=== PATIENT | female | born 1935 | race Caucasian/White ===

== ENCOUNTER 2016-10-27 13:38 | Inpatient (IN) | payer MEDICARE ==
[~2016-10-27] VITALS: Ht 162.6 cm; Wt 80.4 kg
[2016-10-27 14:13] VITALS: BP 152/64; PULSE 71; RESP 16; TEMP 97.8; O2SAT 97
--- NOTE | 2016-10-27 14:13 | PD ---
HPI Chief Complaint: General Weakness Time Seen by Provider: 14:13 Travel History International Travel<30 days: No Contact w/Intl Traveler<30days: No Traveled to known affect area: No History of Present Illness HPI 81-year-old female with a history of hyperlipidemia, hypothyroidism, anxiety and depression is brought to the emergency department by EMS for evaluation of generalized weakness. The patient is here visiting from [place] for the past several days. Per EMS report while the patient was out by the pool in the hot sun she began to feel weak and the family called EMS. The patient states that she has weakness in her legs that has been worsening over the past several months and she does use a wheelchair for ambulation. She also admits that she' s had frequent falls over the past several months due to the weakness in her legs. States that about 3 hours ago while sitting outside she did begin to feel weak all over. Denies any chest pain, shortness of breath, lightheadedness , dizziness, nausea, vomiting, abdominal pain, numbness or tingling, one-sided weakness, vision changes, headache, fever, chills, cough or cold symptoms. No other complaints. [facility] Past Medical History Narrative Medical Hyperlipidemia Hypothyroidism Memory loss ?: Not Social History Alcohol Use: No Tobacco Use: No Substance Use: No Allergies-Medications (Allergen,Severity, Reaction): Coded Allergies: Bactrim (Verified Allergy, Unknown, 10/27/16) Cipro (Verified Allergy, Unknown, 10/27/16) Codeine (Verified Allergy, Unknown, 10/27/16) Phenobarbital (Verified Allergy, Unknown, 10/27/16) Review of Systems Except as stated in HPI: all other systems reviewed are Neg Physical Exam Narrative GENERAL: Well-nourished and well-developed elderly female patient in no acute distress. SKIN: Warm and clammy. HEAD: Normocephalic and atraumatic. EYES: No injection, drainage, or hyphema noted. PERRLA. EOMI. ENT: No nasal drainage noted. Oropharynx is clear. NECK: Supple and the trachea is midline. CARDIOVASCULAR: Regular rate and rhythm. RESPIRATORY: Breath sounds are equal bilaterally with no accessory muscle use, wheezing, rhonchi, or crackles. GASTROINTESTINAL: Abdomen is soft, non-tender, and nondistended. MUSCULOSKELETAL: No obvious deformities, swelling, cyanosis, or ecchymosis is present throughout the upper and lower extremities. Patient has full range of motion without any signs of neurovascular compromise. Strength 5/5 upper extremities and equal bilaterally. Strength 4/5 lower extremities and equal bilaterally. NEUROLOGICAL: Awake, alert, and oriented. Normal speech. Cranial nerves are grossly intact. Data Data Last Documented VS Vital Signs Date Time Temp Pulse Resp B/P Pulse Ox O2 Delivery O2 Flow Rate FiO2 10/27/16 14:15 70 16 95 Nasal Cannula 2 10/27/16 14:13 97.8 152/64 Orders Electrocardiogram (10/27/16 14:09) Complete Blood Count With Diff (10/27/16 14:09) Comprehensive Metabolic Panel (10/27/16 14:09) Magnesium (Mg) (10/27/16 14:09) Troponin I (10/27/16 14:09) Urinalysis - C+S If Indicated (10/27/16 14:09) Chest, Single Ap (10/27/16 14:09) Ct Brain W/O Iv Contrast(Rout) (10/27/16 14:09) Ecg Monitoring (10/27/16 14:09) Iv Access Insert/Monitor (10/27/16 14:09) Oximetry (10/27/16 14:09) Lactic Acid Sepsis Protocol (10/27/16 14:49) Blood Culture (10/27/16 15:05) Cefepime Inj (Maxipime Inj) (10/27/16 15:09) Azithromycin Inj (Zithromax Inj) (10/27/16 15:09) Admit Order (Ed Use Only) (10/27/16 16:34) Labs Laboratory Tests Test 10/27/16 10/27/16 14:20 15:30 White Blood Count 22.1 TH/MM3 Red Blood Count 4.45 MIL/MM3 Hemoglobin 12.5 GM/DL Hematocrit 39.7 % Mean Corpuscular Volume 89.2 FL Mean Corpuscular Hemoglobin 28.1 PG Mean Corpuscular Hemoglobin 31.6 % Concent Red Cell Distribution Width 13.7 % Platelet Count 224 TH/MM3 Mean Platelet Volume 9.9 FL Neutrophils (%) (Auto) 75.1 % Lymphocytes (%) (Auto) 12.3 % Monocytes (%) (Auto) 10.2 % Eosinophils (%) (Auto) 1.4 % Basophils (%) (Auto) 1.0 % Neutrophils # (Auto) 16.6 TH/MM3 Lymphocytes # (Auto) 2.7 TH/MM3 Monocytes # (Auto) 2.3 TH/MM3 Eosinophils # (Auto) 0.3 TH/MM3 Basophils # (Auto) 0.2 TH/MM3 CBC Comment AUTO DIFF Differential Total Cells 100 Counted Neutrophils % (Manual) 76 % Band Neutrophils % 5 % Lymphocytes % 9 % Monocytes % 8 % Eosinophils % 2 % Neutrophils # (Manual) 17.9 TH/MM3 Differential Comment FINAL DIFF MANUAL Platelet Estimate NORMAL Platelet Morphology Comment NORMAL Red Cell Morphology Comment NORMAL Sodium Level 144 MEQ/L Potassium Level 3.7 MEQ/L Chloride Level 108 MEQ/L Carbon Dioxide Level 26.5 MEQ/L Anion Gap 10 MEQ/L Blood Urea Nitrogen 26 MG/DL Creatinine 1.30 MG/DL Estimat Glomerular Filtration 39 ML/MIN Rate Random Glucose 142 MG/DL Calcium Level 9.2 MG/DL Magnesium Level 1.6 MG/DL Total Bilirubin 0.5 MG/DL Aspartate Amino Transf 18 U/L (AST/SGOT) Alanine Aminotransferase 15 U/L (ALT/SGPT) Alkaline Phosphatase 73 U/L Troponin I LESS THAN 0.02 NG/ML Total Protein 6.5 GM/DL Albumin 2.7 GM/DL Lactic Acid Level 1.4 mmol/L MDM Medical Decision Making Medical Screen Exam Complete: Yes Emergency Medical Condition: Yes Differential Diagnosis Dehydration versus electrolyte abnormality versus UTI versus other Narrative Course 81-year-old female is brought to the emergency department by EMS for evaluation of generalized weakness that began this morning. Patient is afebrile, vital signs are stable. Physical examination reveals she is clammy and warm but otherwise unremarkable. IV access was obtained, labs were drawn and sent. Patient is placed on cardiac telemetry and pulse oximetry monitoring. Patient is administered IV fluids. CT of the head has been ordered and is pending. EKG shows normal sinus rhythm with no acute ST elevations or depressions. CBC shows elevated white count of 22.1. CMP shows renal insufficiency with a creatinine 1.3, BUN 26, GFR 39. Troponin is less than 0.02. Lactic acid is 1.4. Head CT is negative for any acute abnormalities. Chest x-ray shows right upper lobe and left lower lobe lung consolidations. The patient has pneumonia. She is reporting that she has had recent hospitalizations in the past month for frequent falls. We'll treat the patient for hospital-acquired pneumonia with cefepime and Zithromax. Patient will be admitted to medicine service for pneumonia. I discussed the case with my attending physician Dr. Jensen who is aware of the patients history, physical examination findings, and treatment plan. Physician Communication Physician Communication I spoke with Dr. Nguyen [facility] who agrees to admit the patient to his service. Diagnosis Primary Impression: Pneumonia Qualified Code: J18.9 - Pneumonia of both lungs due to infectious organism, unspecified part of lung Additional Impressions: Acute on chronic renal insufficiency Generalized weakness Admitting Information Admitting Physician Requests: Admit Marisol Gustafson Oct 27, 2016 14:13
[2016-10-27 14:14] VITALS: RESP 16; O2SAT 96
--- NOTE | 2016-10-27 14:28 | RADRPT ---
EXAM DATE/TIME: 10/27/2016 14:09 [facility] COMPARISON: No previous studies available for comparison. INDICATIONS : Shortness of breath. MEDICAL HISTORY : None. SURGICAL HISTORY : None. ENCOUNTER: Initial ACUITY: 1 day PAIN SCORE: 0/10 LOCATION: Bilateral chest FINDINGS: Lungs are hypoaerated. Increased density suggesting airspace disease is seen along the right side of the mediastinum and in the left base.. Calcified granulomas in the right lung base. Heart is at the upper limits of normal size to mildly enlarged. CONCLUSION: Poor inspiratory chest Suspected air space disease in the right upper lobe and left base. Right basilar calcified granuloma. Amaury Carrion MD on October 27, 2016 at 14:24 Board Certified Radiologist. This report was verified electronically.
[2016-10-27 14:36] LABS: AUTOMATED NEUTROPHIL # 16.6 TH/MM3 (1.8-7.7); BASOPHIL # 0.2 TH/MM3 (0-0.2); EOSINOPHIL # 0.3 TH/MM3 (0-0.4); EOSINOPHIL % 1.4 % (0.0-4.0); HEMATOCRIT 39.7 % (35.0-46.0); LYMPH % 12.3 % (9.0-44.0); LYMPHOCYTE # 2.7 TH/MM3 (1.0-4.8); MEAN CELL VOLUME 89.2 FL (80.0-100.0); MEAN CORPUSCULAR HEMOGLOBIN 28.1 PG (27.0-34.0); MEAN CORPUSCULAR HGB CONC 31.6 % (32.0-36.0); MONO % 10.2 % (0.0-8.0); NEUT % 75.1 % (16.0-70.0); PLATELET COUNT 224 TH/MM3 (150-450); RED BLOOD COUNT 4.45 MIL/MM3 (4.00-5.30); RED CELL DISTRIBUTION WIDTH 13.7 % (11.6-17.2); WHITE BLOOD COUNT 22.1 TH/MM3 (4.0-11.0)
[2016-10-27 14:41] LABS: HEMO FLAGS AUTO DIFF
[2016-10-27 14:54] LABS: ALKALINE PHOSPHATASE 73 U/L (45-117); ALT (GPT) 15 U/L (10-53); TOTAL BILIRUBIN ADULT 0.5 MG/DL (0.2-1.0)
[2016-10-27] MEDS ORDERED: CEFEPIME INJ 2,000 MG in SODIUM CHLORIDE 0.9% INJ 100 ML IV STA (15:09)
[2016-10-27] MEDS ORDERED: AZITHROMYCIN INJ 500 MG in SODIUM CHLOR 0.9% 250 ML INJ 250 ML IV STA (15:09)
[2016-10-27 15:14] LABS: BANDS 5 % (0-6); EOSINOPHILS 2 % (0-4); NEUTROPHIL # MANUAL DIFF 17.9 TH/MM3 (1.8-7.7); POLYS (SEG NEUTROPHILS) 76 % (16-70); WBC DIFF SAMPLE 100
[2016-10-27 15:15] LABS: PLATELET ESTIMATE SMEAR NORMAL (NORMAL); PLATELET MORPHOLOGY NORMAL (NORMAL); SCAN/DIFF FINAL DIFF MANUAL
[2016-10-27 15:20] LABS: ANION GAP 10 MEQ/L (5-15); AST (GOT) 18 U/L (15-37); BICARBONATE 26.5 MEQ/L (21.0-32.0); BLOOD UREA NITROGEN 26 MG/DL (7-18); CHLORIDE 108 MEQ/L (98-107); GLOMERULAR FILTRATION RATE 39 ML/MIN (>89); MAGNESIUM 1.6 MG/DL (1.5-2.5); POTASSIUM 3.7 MEQ/L (3.5-5.1); SODIUM (NA) 144 MEQ/L (136-145)
--- NOTE | 2016-10-27 16:17 | RADRPT ---
EXAM DATE/TIME: 10/27/2016 16:02 [facility] COMPARISON: No previous studies available for comparison. INDICATIONS : Patient with dizziness,weakness and frequest falls. RADIATION DOSE: 49.31 CTDIvol (mGy) MEDICAL HISTORY : Hypothyroidism. SURGICAL HISTORY : None. ENCOUNTER: Initial ACUITY: 1 day PAIN SCALE: 0/10 LOCATION: cranial TECHNIQUE: Multiple contiguous axial images were obtained of the head. Using automated exposure control and adj ustment of the mA and/or kV according to patient size, radiation dose was kept as low as reasonably a chievable to obtain optimal diagnostic quality images. FINDINGS: CEREBRUM: The CSF spaces are enlarged.. No evidence of midline shift, mass lesion, hemorrhage or acute infarct ion. No extra-axial fluid collections are seen. POSTERIOR FOSSA: The cerebellum and brainstem are intact. The 4th ventricle is midline. The cerebellopontine angle i s unremarkable. EXTRACRANIAL: The visualized portion of the orbits is intact. SKULL: The calvaria is intact. No evidence of skull fracture. CONCLUSION: Aging brain with mild volume loss. No evidence of acute infarct, hemorrhage, mass or edema. Amaury Carrion MD on October 27, 2016 at 16:14 Board Certified Radiologist. This report was verified electronically.
[2016-10-27] MEDS ORDERED: ACETAMINOPHEN 325 MG TAB PO PRN (17:15)
[2016-10-27] MEDS ORDERED: NALOXONE HCL 0.4 MG/ML AMP IV PRN (17:15)
[2016-10-27] MEDS ORDERED: ONDANSETRON HCL 4 MG/2 ML VIAL IVP PRN (17:15)
[2016-10-27] MEDS ORDERED: MAGNESIUM HYDROXIDE SUSP 30 ML CUP PO PRN (17:15)
[2016-10-27] MEDS ORDERED: SODIUM CHLORIDE 0.9% FLUSH 10 ML FLUSH IV FLUSH PRN (17:15)
[2016-10-27] MEDS ORDERED: SENNOSIDES 8.6 MG TAB PO PRN (17:15)
[2016-10-27 17:18] VITALS: O2SAT 98
[2016-10-27 17:31] VITALS: BP 149/63; PULSE 66; RESP 18; O2SAT 98
[2016-10-27] MEDS: SODIUM CHLOR 0.45% 1000 ML INJ 1,000 ML IV SCH (17:44)
[2016-10-27] MEDS: HEPARIN SODIUM - SQ 10,000 UNITS/ML VIAL SQ SCH (17:44)
[2016-10-27] MEDS ORDERED: RESP: ALBUTEROL 2.5 MG/IPRATROPIUM 0.5 MG NEB (PRN) NEB (17:45)
--- NOTE | 2016-10-27 17:45 | HHI.HP ---
[facility] Non-Staff Admission Diagnosis Pneumonia, CONSTANZA, Weakness Diagnoses: Chief Complaint: weakness Travel History International Travel<30 Days: No Contact w/Intl Traveler <30 Da: No Traveled to Known Affected Are: No History of Present Illness 81 year old female with history of HLD, hypothyroidism, anxiety, depression, CKD stage 3, and DM (Diet controlled) was brought in by [facility] for generalized weakness. Patient is from [place] and she will be here til Wednesday. She complains of generalized weakness to bilateral lower extremities, and fine tremors in bilateral hands, and it has caused her to have multiple falls in the past several months. She does use a walker with a seat at home. Her most recent fall was on Wednesday, she denies any prior dizziness or loc prior to fall. After the fall she was complaining of bilateral rib pain, that caused pain when she took deep breaths. She denies any cough or shortness of breath associated. In [place] she was in the process of going to see a neurologist for her weakness, but has not made it yet. Her PCP did Electromyography (EMG testing) and was referring her to a neurologist. She denies any chest pain, fever, chills, nausea , or dysuria. The patient says that she has been falling down quite a bit recently. She has been to the ED for numerous injuries. She most recently is complaining of bilateral hip pain from falls. She denies any cough. She says she has been weak and has been worked up at her primary care doctor's office and had an EMG which did show abnormalities. She was waiting to see a neurologist about that. She says she has been ambulating with a walker but sometimes her legs will start becoming tremulous and she will just fall even with the walker. Review of Systems Constitutional: DENIES: Fever, Chills Respiratory: DENIES: Cough, Shortness of breath Cardiovascular: DENIES: Chest pain, Lower Extremity Edema Gastrointestinal: DENIES: Abdominal pain, Constipation, Diarrhea, Nausea, Vomiting Musculoskeletal: DENIES: Joint pain, Back pain, Neck pain Integumentary: DENIES: Rash Neurologic: COMPLAINS OF: Localized weakness, Tremor, Poor Balance Past Family Social History Past Medical History HLD Hypothyroidism Anxiety Depression DM (Diet controlled) CKD stage 3 Past Surgical History Cholecystectomy Hysterectomy Tubal Hernia repair Bladder repair Allergies: Coded Allergies: Bactrim (Verified Allergy, Unknown, 10/27/16) Cipro (Verified Allergy, Unknown, 10/27/16) Codeine (Verified Allergy, Unknown, 10/27/16) Phenobarbital (Verified Allergy, Unknown, 10/27/16) Family History Mom: Htn, DM Dad: DM Social History Patient denies any tobacco, alcohol or illicit drug use Physical Exam Vital Signs Vital Signs Date Time Temp Pulse Resp B/P Pulse Ox O2 Delivery O2 Flow Rate FiO2 10/27/16 14:15 70 16 95 Nasal Cannula 2 10/27/16 14:14 16 96 Nasal Cannula 2 10/27/16 14:13 97.8 71 16 152/64 97 Nasal Cannula 2 Physical Exam GENERAL: This is a well-nourished, well-developed patient, in no apparent distress. SKIN: No rashes, ecchymoses or lesions. Cool and dry. HEAD: Atraumatic. Normocephalic. EYES: Pupils equal round and reactive. Extraocular motions intact. ENT: Nose without bleeding, purulent drainage or septal hematoma. Airway patent. NECK: Trachea midline. No JVD or lymphadenopathy. Supple, nontender, no meningeal signs. CARDIOVASCULAR: Regular rate and rhythm without murmurs, gallops, or rubs. RESPIRATORY: Diminished breath sounds bilaterally. No wheezes, rales, or rhonchi. GASTROINTESTINAL: Abdomen soft, non-tender, nondistended. No hepato-splenomegaly , or palpable masses. No guarding. MUSCULOSKELETAL: Extremities without clubbing, cyanosis, or edema. No joint tenderness, effusion, or edema noted. No calf tenderness. NEUROLOGICAL: Awake and alert. Cranial nerves II through XII intact. Motor and sensory grossly within normal limits.3-4 out of 5 muscle strength in all muscle groups. Weaker in bilateral lowers. Normal speech. The patient is weak appearing. She was breathing comfortably. Heart with no murmur. Abdomen was benign. She has significant weakness in bilateral lower extremities with a 3 out of 5. Her upper extremities were 4 out of 5. Laboratory Laboratory Tests Test 10/27/16 10/27/16 14:20 15:30 White Blood Count 22.1 Red Blood Count 4.45 Hemoglobin 12.5 Hematocrit 39.7 Mean Corpuscular Volume 89.2 Mean Corpuscular Hemoglobin 28.1 Mean Corpuscular Hemoglobin 31.6 Concent Red Cell Distribution Width 13.7 Platelet Count 224 Mean Platelet Volume 9.9 Neutrophils (%) (Auto) 75.1 Lymphocytes (%) (Auto) 12.3 Monocytes (%) (Auto) 10.2 Eosinophils (%) (Auto) 1.4 Basophils (%) (Auto) 1.0 Neutrophils # (Auto) 16.6 Lymphocytes # (Auto) 2.7 Monocytes # (Auto) 2.3 Eosinophils # (Auto) 0.3 Basophils # (Auto) 0.2 CBC Comment AUTO DIFF Differential Total Cells 100 Counted Neutrophils % (Manual) 76 Band Neutrophils % 5 Lymphocytes % 9 Monocytes % 8 Eosinophils % 2 Neutrophils # (Manual) 17.9 Differential Comment FINAL DIFF MANUAL Platelet Estimate NORMAL Platelet Morphology Comment NORMAL Red Cell Morphology Comment NORMAL Sodium Level 144 Potassium Level 3.7 Chloride Level 108 Carbon Dioxide Level 26.5 Anion Gap 10 Blood Urea Nitrogen 26 Creatinine 1.30 Estimat Glomerular Filtration 39 Rate Random Glucose 142 Calcium Level 9.2 Magnesium Level 1.6 Total Bilirubin 0.5 Aspartate Amino Transf 18 (AST/SGOT) Alanine Aminotransferase 15 (ALT/SGPT) Alkaline Phosphatase 73 Troponin I LESS THAN 0.02 Total Protein 6.5 Albumin 2.7 Lactic Acid Level 1.4 Date/Time Procedure Status Source Growth 10/27/16 15:30 Aerobic Blood Culture Received Blood Peripheral Pending 10/27/16 15:30 Anaerobic Blood Culture Received Blood Peripheral Pending Result Diagram: 10/27/16 1420 10/27/16 1420 Imaging Last Impressions Head CT 10/27/[id number] Signed Impressions: Service Date/Time: Thursday, October 27, 2016 16:02 - CONCLUSION: Aging brain with mild volume loss. No evidence of acute infarct, hemorrhage, mass or edema. Amaury Carrion MD Chest X-Ray 10/27/161408 Signed Impressions: Service Date/Time: Thursday, October 27, 2016 14:09 - CONCLUSION: Poor inspiratory chest Suspected air space disease in the right upper lobe and left base. Right basilar calcified granuloma. Amaury Carrion MD Assessment and Plan Problem List: (1) Pneumonia ICD Code: J18.9 Status: Acute (2) Generalized weakness ICD Code: R53.1 Status: Acute (3) Leukocytosis ICD Code: D72.829 Status: Acute (4) Acute on chronic renal insufficiency ICD Code: N28.9 Status: Acute Assessment and Plan 81 year old female with history of HLD, hypothyroidism, anxiety, depression, CKD stage 3, and DM (Diet controlled) was brought in by [facility] for generalized weakness. Patient is from [place] and she will be here til Wednesday. She complains of generalized weakness to bilateral lower extremities, and fine tremors in bilateral hands, and it has caused her to have multiple falls in the past several months. Pneumonia suspect community acquired Chest xray shows Poor inspiratory chest Suspected air space disease in the right upper lobe and left base. Right basilar calcified granuloma. -Given azithromycin and cefepime in ED -Start antibiotics -Incentive spirometer while awake -Duonebs prn for sob or cough The patient denies any symptoms. Treat with IV ceftriaxone and IV azithromycin. Follow blood cultures. Oxygen and nebs as needed. Repeat x-ray PA and lateral in the morning. Speech therapy eval to rule out aspiration considering her weakness. Generalized weakness, chronic for the last several months, uses a walker at home -Consult neurology for recommendations -PT consult to eval and treat Outpatient EEG with reported abnormalities. Obtain neurology consultation for further recommendations. PT and OT. Leukocytosis, suspected CAP, WBC 22.1, lactic 1.4 -CBC in AM -Cont antibiotics as above CKD, stage 3 Creatine 1.3, unknown baseline -CMP in AM, trend -Avoid nephrotoxins -Gentle IVF hydration Hyperglycemia The patient says she has been taken off of her medications. - Insulin sliding scales and monitor glucose. - Check A1c level. Chronic medical conditions HLD, anxiety and depression: Will order home medications when med rec is updated. DVT prophylaxis: Heparin Discussed with Dr. Nguyen. Discussed Condition With Dr Nguyen Physician Certification 2 Midnight Certification Type: Admission for Inpatient Services Order for Inpatient Services The services are ordered in accordance with Medicare regulations or non- Medicare payer requirements, as applicable. In the case of services not specified as inpatient-only, they are appropriately provided as inpatient services in accordance with the 2-midnight benchmark. Estimated LOS (days): 2 days is the estimated time the patient will need to remain in the hospital, assuming treatment plan goals are met and no additional complications. Post-Hospital Plan: Not yet determined Notes: The exam, history, and the medical decision-making described in the above note were completed with the assistance of the mid-level provider. I reviewed and agree with the findings presented. I attest that I had a [id number] encounter with the patient on the same day, and personally performed and documented my assessment and findings in the medical record. Problem Qualifiers (1) Pneumonia: Qualified Code: J18.9 - Pneumonia of both lungs due to infectious organism, unspecified part of lung Ann Montalvo Oct 27, 2016 17:45 Murray Nguyen DO Oct 27, 2016 19:36
[2016-10-27] MEDS ORDERED: ALPR.5 PO (17:58)
[2016-10-27] MEDS ORDERED: ZANA4CAP PO (17:58)
[2016-10-27] MEDS ORDERED: REST30CA PO (17:58)
[2016-10-27] MEDS ORDERED: NEXI40CA PO (17:58)
[2016-10-27] MEDS ORDERED: SYMB6CAP PO (17:58)
[2016-10-27] MEDS ORDERED: PROZ40CA PO (17:58)
[2016-10-27] MEDS ORDERED: LEVO25TA4 PO (17:58)
[2016-10-27] MEDS ORDERED: NAME10TA PO (17:58)
[2016-10-27] MEDS ORDERED: PRAV10TA PO (17:58)
--- NOTE | 2016-10-27 18:10 | EKG ---
Date Performed: 10/27/2016 Time Performed: 14:25:13 PTAGE: 81 years EKG: Sinus rhythm NONSPECIFIC ST & T-WAVE ABNORMALITY BORDERLINE ECG NO PREVIOUS TRACING DOCTOR: Kirit Medrano Interpretating Date/Time 10/27/2016 18:08:01
--- NOTE | 2016-10-27 20:58 | RADRPT ---
EXAM DATE/TIME: 10/27/2016 20:08 [facility] COMPARISON: No previous studies available for comparison. INDICATIONS : Left hip pain after falling Wednesday. MEDICAL HISTORY : Arthritis. Gastroesophageal reflux disease. SURGICAL HISTORY : None. ENCOUNTER: Initial ACUITY: 4 - 6 days PAIN SCORE: 10 LOCATION: Left hip joint. FINDINGS: Examination of the left hip was performed with AP Pelvis. The primary and secondary trabecular patte rn of the femoral neck is intact. The hip joint is of normal width without significant sclerosis or bony hypertrophy. The acetabulum is grossly intact. CONCLUSION: Intact pelvis and left hip. Vasquez Kerns MD on October 27, 2016 at 20:55 Board Certified Radiologist. This report was verified electronically.
--- NOTE | 2016-10-27 20:58 | RADRPT ---
EXAM DATE/TIME: 10/27/2016 20:09 [facility] COMPARISON: No previous studies available for comparison. INDICATIONS : Right hip pain after falling Wednesday. MEDICAL HISTORY : Arthritis. Gastroesophageal reflux disease. SURGICAL HISTORY : None. ENCOUNTER: Initial ACUITY: 4 - 6 days PAIN SCORE: 10/10 LOCATION: Right hip joint. FINDINGS: A two view examination of the right hip was performed. The primary and secondary trabecular pattern of the femoral neck is intact. The hip joint is of normal width without significant sclerosis or bon y hypertrophy. The acetabulum is grossly intact. CONCLUSION: Intact right hip. Mild osteoarthritis. Vasquez Kerns MD on October 27, 2016 at 20:56 Board Certified Radiologist. This report was verified electronically.
[2016-10-27] MEDS: SODIUM CHLORIDE 0.9% FLUSH 10 ML FLUSH IV FLUSH SCH (21:00)
[2016-10-27] MEDS: INSULIN ASPART SUPPLEMENTAL SCALE SQ SCH (21:00)
[2016-10-27 21:05] VITALS: BP_SYST 140; BP_SYST 166; BP_DIAS 74; BP_DIAS 76; PULSE 64; RESP 22; TEMP 97.9; O2SAT 98
[2016-10-28] VITALS (8 sets, daily range): BP systolic 147–175; BP diastolic 56–77; PULSE 66–85; RESP 18–20; TEMP 97.7–99.1; O2SAT 93–98
[2016-10-28] MEDS: HEPARIN SODIUM - SQ 10,000 UNITS/ML VIAL SQ SCH ×3 (01:51→18:10)
[2016-10-28] MEDS: INSULIN ASPART SUPPLEMENTAL SCALE SQ SCH ×4 (05:55→21:00)
[2016-10-28] MEDS: SODIUM CHLOR 0.45% 1000 ML INJ 1,000 ML IV SCH (05:57)
[2016-10-28] MEDS: SODIUM CHLORIDE 0.9% FLUSH 10 ML FLUSH IV FLUSH SCH ×2 (08:22→21:00)
--- NOTE | 2016-10-28 09:01 | RADRPT ---
EXAM DATE/TIME: 10/28/2016 08:44 [facility] COMPARISON: No previous studies available for comparison. INDICATIONS : Short of breath, chest pain, weakness. MEDICAL HISTORY : None. SURGICAL HISTORY : None. ENCOUNTER: Subsequent ACUITY: 2 days PAIN SCORE: 2/10 LOCATION: Bilateral chest FINDINGS: There's cardiomegaly with mild interstitial edema present. Minimal consolidative changes are seen in the left base. Mild degenerative changes are seen about the left shoulder. Chronic rotator cuff te ar suspected. CONCLUSION: Mild interstitial edema. Minimal consolidative changes left base. Prabhakar Burns MD FACR on October 28, 2016 at 8:57 Board Certified Radiologist. This report was verified electronically.
[2016-10-28 09:43] LABS: AUTOMATED NEUTROPHIL # 10.9 TH/MM3 (1.8-7.7); BASOPHIL # 0.1 TH/MM3 (0-0.2); BASOPHIL % 0.6 % (0.0-2.0); EOSINOPHIL # 0.5 TH/MM3 (0-0.4); EOSINOPHIL % 2.9 % (0.0-4.0); HEMATOCRIT 36.3 % (35.0-46.0); HEMO FLAGS DIFF FINAL; LYMPH % 22.1 % (9.0-44.0); LYMPHOCYTE # 3.8 TH/MM3 (1.0-4.8); MEAN CELL VOLUME 87.9 FL (80.0-100.0); MEAN CORPUSCULAR HEMOGLOBIN 28.4 PG (27.0-34.0); MEAN CORPUSCULAR HGB CONC 32.3 % (32.0-36.0); MONO % 10.8 % (0.0-8.0); NEUT % 63.6 % (16.0-70.0); PLATELET COUNT 228 TH/MM3 (150-450); RED BLOOD COUNT 4.14 MIL/MM3 (4.00-5.30); RED CELL DISTRIBUTION WIDTH 13.5 % (11.6-17.2); WHITE BLOOD COUNT 17.1 TH/MM3 (4.0-11.0)
[2016-10-28 10:09] LABS: ANION GAP 11 MEQ/L (5-15); AST (GOT) 14 U/L (15-37); BICARBONATE 23.6 MEQ/L (21.0-32.0); BLOOD UREA NITROGEN 24 MG/DL (7-18); CHLORIDE 107 MEQ/L (98-107); GLOMERULAR FILTRATION RATE 47 ML/MIN (>89); POTASSIUM 3.5 MEQ/L (3.5-5.1); SODIUM (NA) 142 MEQ/L (136-145)
[2016-10-28 10:14] LABS: ALKALINE PHOSPHATASE 64 U/L (45-117); ALT (GPT) 12 U/L (10-53); TOTAL BILIRUBIN ADULT 0.5 MG/DL (0.2-1.0)
[2016-10-28] MEDS ORDERED: ALPRAZolam 0.5 MG TAB PO PRN (10:30)
[2016-10-28] MEDS ORDERED: POTASSIUM CHLORIDE 25 MEQ EFFERVESCENT TAB PO ONE (10:45)
[2016-10-28] MEDS ORDERED: ENALAPRILAT 1.25 MG/ML VIAL IV PUSH PRN (10:45)
--- NOTE | 2016-10-28 10:45 | HHI.PR ---
Subjective Remarks The patient said she felt a little bit better. She said she was able to use the walker without her knees buckling on her. She says her familial tremors get worse under times of stress or sickness. She said she has to go to [place] on Wednesday. Discussed with nursing at the bedside. Objective Vitals Vital Signs Date Time Temp Pulse Resp B/P Pulse Ox O2 Delivery O2 Flow Rate FiO2 10/28/16 08:03 99.1 75 19 172/77 95 10/28/16 08:00 Nasal Cannula 2.00 10/28/16 05:00 98.1 85 18 160/71 96 10/28/16 00:21 98.1 66 20 172/77 98 166/76 10/27/16 21:05 97.9 64 22 166/74 98 140/76 10/27/16 20:00 Nasal Cannula 2.00 10/27/16 17:31 66 18 149/63 98 Nasal Cannula 2 10/27/16 17:18 98 Nasal Cannula 2.00 10/27/16 14:15 70 16 95 Nasal Cannula 2 10/27/16 14:14 16 96 Nasal Cannula 2 10/27/16 14:13 97.8 71 16 152/64 97 Nasal Cannula 2 I/O 10/27/16 10/27/16 10/27/16 10/28/16 10/28/16 10/28/16 07:00 15:00 23:00 07:00 15:00 23:00 Intake Total 948 ml Output Total 250 ml Balance 698 ml Intake Oral 240 ml IV Total 708 ml Output Urine Total 250 ml Stool Total 0 ml Result Diagram: 10/28/16 0808 10/28/16 0808 Imaging Last Impressions Chest X-Ray 10/28/16 0600 Signed Impressions: Service Date/Time: Friday, October 28, 2016 08:44 - CONCLUSION: Mild interstitial edema. Minimal consolidative changes left base. Prabhakar Burns MD FACR Head CT 10/27/16 1409 Signed Impressions: Service Date/Time: Thursday, October 27, 2016 16:02 - CONCLUSION: Aging brain with mild volume loss. No evidence of acute infarct, hemorrhage, mass or edema. Amaury Carrion MD Hip and Pelvis X-Ray 10/27/16 0000 Signed Impressions: Service Date/Time: Thursday, October 27, 2016 20:08 - CONCLUSION: Intact pelvis and left hip. Vasquez Kerns MD Hip X-Ray 10/27/16 0000 Signed Impressions: Service Date/Time: Thursday, October 27, 2016 20:09 - CONCLUSION: Intact right hip. Mild osteoarthritis. Vasquez Kerns MD Objective Remarks GENERAL: This is a well-nourished, well-developed patient, in no apparent distress. SKIN: No rashes, ecchymoses or lesions. Cool and dry. HEAD: Atraumatic. Normocephalic. EYES: Pupils equal round and reactive. Extraocular motions intact. ENT: Nose without bleeding, purulent drainage or septal hematoma. Airway patent. NECK: Trachea midline. No JVD or lymphadenopathy. Supple, nontender, no meningeal signs. CARDIOVASCULAR: Regular rate and rhythm without murmurs, gallops, or rubs. RESPIRATORY: Diminished breath sounds bilaterally. No wheezes, rales, or rhonchi. GASTROINTESTINAL: Abdomen soft, non-tender, nondistended. No hepato-splenomegaly , or palpable masses. No guarding. MUSCULOSKELETAL: Extremities without clubbing, cyanosis, or edema. No joint tenderness, effusion, or edema noted. No calf tenderness. NEUROLOGICAL: Awake and alert. Baseline tremor. Cranial nerves II through XII intact. Motor 4 out of 5 muscle strength in upper extremities, 3/5 in lower extremities. Normal speech. PSYCH: Mood and affect appropriate. Medications and IVs Current Medications Medications (Trade) Dose Ordered Sig/Franc Route Start Time Stop Time Status Last Admin (NS Flush) 2 ml UNSCH PRN IV FLUSH 10/27/16 17:15 (NS Flush) 2 ml BID IV FLUSH 10/27/16 21:00 (Tylenol) 650 mg Q4H PRN PO 10/27/16 17:15 (Zofran Inj) 4 mg Q6H PRN IVP 10/27/16 17:15 (Heparin Inj) 5,000 units Q8H SQ 10/27/16 17:15 10/28/16 08:22 (Narcan Inj) 0.4 mg UNSCH PRN IV 10/27/16 17:15 (Milk Of Magnesia Liq) 30 ml Q12H PRN PO 10/27/16 17:15 Sennosides 17.2 mg 17.2 mg Q12H PRN PO 10/27/16 17:15 Azithromycin 500 mg/Sodium Chloride 250 ml @ 250 mls/hr Q24H IV 10/28/16 15:00 (Rocephin Inj/NS Inj) 100 ml @ 200 mls/hr Q24H IV 10/28/16 15:00 A/P Problem List: (1) Pneumonia ICD Code: J18.9 Status: Acute (2) Generalized weakness ICD Code: R53.1 Status: Acute (3) Leukocytosis ICD Code: D72.829 Status: Acute (4) Acute on chronic renal insufficiency ICD Code: N28.9 Status: Acute Assessment and Plan Pneumonia (community acquired) Chest xray shows air space disease in the right upper lobe and left base; Right basilar calcified granuloma. Repeat CXR with minimal consolidative changes in the left base. She has leukocytosis. - Continue IV ceftriaxone and azithromycin. - Incentive spirometer while awake. - Oxygen and Duonebs as needed. - Follow blood cultures. - Mechanical soft diet per therapy. Generalized weakness Chronic for the last several months. She uses a walker at home and has been falling s/t her knees buckling. She reportedly had an EMG as an outpt which was abnormal. - Consult neurology for recommendations. - PT consult to eval and treat. Renal insufficiency Creatine 1.3 on admission. Improved with fluids. - Avoid nephrotoxins. - Gentle IVF hydration. Hyperglycemia The patient says she has been taken off of her medications. - Insulin sliding scales and monitor glucose. - Check A1c level. Hypertension Blood pressure has been elevated. - start amlodipine 5 mg daily. - Vasotec as needed. DVT prophylaxis: Heparin Discharge Planning Awaiting neurology evaluation Problem Qualifiers (1) Pneumonia: Qualified Code: J18.9 - Pneumonia of both lungs due to infectious organism, unspecified part of lung Murray Nguyen DO Oct 28, 2016 10:45
[2016-10-28] MEDS ORDERED: TEMAZEPAM 15 MG CAP PO PRN (11:15)
[2016-10-28] MEDS ORDERED: BISACODYL 10 MG SUPP RECTAL ONE (12:00)
[2016-10-28] MEDS: amLODIPine BESYLATE 5 MG TAB PO SCH (13:01)
[2016-10-28] MEDS: MEMANTINE HCL 10 MG TAB PO SCH (13:01)
[2016-10-28] MEDS: DOCUSATE SODIUM 100 MG CAP PO SCH ×2 (13:02→21:00)
[2016-10-28] MEDS: FLUoxetine HCL 20 MG CAP PO SCH (13:02)
[2016-10-28] MEDS: PRAVASTATIN SOD 10 MG TAB PO SCH (13:02)
[2016-10-28] MEDS: PANTOPRAZOLE SOD 40 MG DELAYED RELEASE TAB PO SCH (13:02)
[2016-10-28] MEDS: POLYETHYLENE GLYCOL 17 GM PKG PO SCH (13:08)
[2016-10-28] MEDS: LEVOTHYROXINE SODIUM 25 MCG TAB PO SCH (13:08)
[2016-10-28] MEDS: SENNOSIDES 8.6 MG TAB PO SCH (13:09)
[2016-10-28] MEDS: cefTRIAXone INJ 1,000 MG in SODIUM CHLORIDE 0.9% INJ 100 ML IV SCH (15:01)
[2016-10-28] MEDS: AZITHROMYCIN INJ 500 MG in SODIUM CHLOR 0.9% 250 ML INJ 250 ML IV SCH (15:09)
[2016-10-28 16:35] LABS: HEMOGLOBIN A1b 2.3 %; HEMOGLOBIN Ao 83.2 %; HEMOGLOBIN LA1C 2.2 %; HEMOGLOBIN P3 4.3 %
--- NOTE | 2016-10-28 16:57 | PD.CONS ---
History of Present Illness Service Neurology Consult Requested By medical Reason for Consult weakness Primary Care Physician Non-Staff History of Present Illness 81 year old female with history of HLD, hypothyroidism, anxiety, depression, CKD stage 3, and DM (Diet controlled) was brought in by [facility] for generalized weakness. Patient is from [place] and visiting the area. uses a walker, hx of lumbar spinal stenosis. see's pain management in [place] and psychiatry for depression. suffers from intractable essential tremor, since her 30's. + family hx in mother , and daughter. states she takes xanax for it. does not remember being on primidone or inderal. had emg done and daughter states it showed "muscle and nerve damage". c/o chronic low back and neck pain. no significant radicular symptoms. lives alone but daughter frequently checks on her. feels stronger today. Review of Systems as above Past Family Social History Past Medical History HLD Hypothyroidism Anxiety Depression DM CKD stage 3 Past Surgical History Cholecystectomy Hysterectomy Tubal Hernia repair Bladder repair Allergies: Coded Allergies: Bactrim (Verified Allergy, Unknown, 10/27/16) Cipro (Verified Allergy, Unknown, 10/27/16) Codeine (Verified Allergy, Unknown, 10/27/16) Phenobarbital (Verified Allergy, Unknown, 10/27/16) Family History +dm Social History Patient denies any tobacco, alcohol or illicit drug use Review of Systems All other ROS: ROS reviewed as documented in chart Past Family Social History Allergies: Coded Allergies: Bactrim (Verified Allergy, Unknown, 10/27/16) Cipro (Verified Allergy, Unknown, 10/27/16) Codeine (Verified Allergy, Unknown, 10/27/16) Phenobarbital (Verified Allergy, Unknown, 10/27/16) Active Ordered Medications Current Medications Medications (Trade) Dose Ordered Sig/Franc Route Start Time Stop Time Status Last Admin (NS Flush) 2 ml UNSCH PRN IV FLUSH 10/27/16 17:15 (NS Flush) 2 ml BID IV FLUSH 10/27/16 21:00 (Tylenol) 650 mg Q4H PRN PO 10/27/16 17:15 (Zofran Inj) 4 mg Q6H PRN IVP 10/27/16 17:15 (Heparin Inj) 5,000 units Q8H SQ 10/27/16 17:15 10/28/16 08:22 (Narcan Inj) 0.4 mg UNSCH PRN IV 10/27/16 17:15 Magnesium Hydroxide 30 ml 30 ml Q12H PRN PO 10/27/16 17:15 Azithromycin 500 mg/Sodium Chloride 250 ml @ 250 mls/hr Q24H IV 10/28/16 15:00 10/28/16 15:09 (Rocephin Inj/NS Inj) 100 ml @ 200 mls/hr Q24H IV 10/28/16 15:00 10/28/16 15:01 (Xanax) 0.5 mg BID PRN PO 10/28/16 10:30 (Synthroid) 25 mcg DAILY@0600 PO 10/28/16 10:30 10/28/16 13:08 (Namenda) 10 mg DAILY PO 10/28/16 10:30 10/28/16 13:01 (Pravachol) 10 mg DAILY PO 10/28/16 11:00 10/28/16 13:02 (Protonix) 40 mg DAILY PO 10/28/16 11:15 10/28/16 13:02 (PROzac) 40 mg DAILY PO 10/28/16 11:15 10/28/16 13:02 (Restoril) 30 mg HS PRN PO 10/28/16 11:15 (Norvasc) 5 mg DAILY PO 10/28/16 10:45 10/28/16 13:01 (Vasotec Inj) 1.25 mg Q6H PRN IV PUSH 10/28/16 10:45 (Colace) 100 mg BID PO 10/28/16 12:00 10/28/16 13:02 (Senokot) 17.2 mg DAILY PO 10/28/16 12:00 10/28/16 13:09 (Miralax) 17 gm DAILY PO 10/28/16 12:00 10/28/16 13:08 Exam I&O / VS 10/27/16 10/27/16 10/28/16 15:00 23:00 07:00 Intake Total 948 ml Output Total 250 ml Balance 698 ml Intake Oral 240 ml IV Total 708 ml Output Urine Total 250 ml Stool Total 0 ml Vital Signs Date Time Temp Pulse Resp B/P Pulse Ox O2 Delivery O2 Flow Rate FiO2 10/28/16 16:08 97.9 73 18 175/74 97 10/28/16 12:01 97.7 73 18 147/66 97 10/28/16 10:00 98 Nasal Cannula 2.00 10/28/16 08:03 99.1 75 19 172/77 95 10/28/16 08:00 Nasal Cannula 2.00 10/28/16 05:00 98.1 85 18 160/71 96 10/28/16 00:21 98.1 66 20 172/77 98 166/76 10/27/16 21:05 97.9 64 22 166/74 98 140/76 10/27/16 20:00 Nasal Cannula 2.00 10/27/16 17:31 66 18 149/63 98 Nasal Cannula 2 10/27/16 17:18 98 Nasal Cannula 2.00 General: Alert and Oriented, No acute distress Eye: EOMI Neurologic: Alert, Oriented, CN II-XII intact Psychiatric: Cooperative, Appropriate mood & affect Exam Comments ox 3, follows, eomi, vff, face sym, able to raise all 4 ext to gravity, mild hip flexor weakness, no clonus, planter flexor, mild distal foot reduced pin; moderate postural/kinetic tremor Review/Management Diagnosis/Plan: (1) Generalized weakness Plan: multifactorial: pneumonia/lumbar/cervical spondylosis/kinetic tremor also with b12 deficiency recs will check mri c/lspine b12 replacement p.t. follow exam (2) Essential tremor Plan: she can try primidone when she gets back home and can be followed (3) Depression (4) Cervical spondylosis (5) Lumbar spondylosis Problem Qualifiers (1) Depression: (2) Cervical spondylosis: Qualified Code: M47.812 - Spondylosis of cervical region without myelopathy or radiculopathy Jimbo Mcdaniels MD Oct 28, 2016 16:57
[2016-10-28] MEDS: CYANOCOBALAMIN 1000 MCG/ML VIAL IM SCH (18:09)
[2016-10-28] MEDS ORDERED: ACETAMINOPHEN 325 MG TAB PO PRN (18:30)
--- NOTE | 2016-10-28 21:37 | RADRPT ---
EXAM DATE/TIME: 10/28/2016 19:23 [facility] COMPARISON: No previous studies available for comparison. INDICATIONS : Inability to ambulate. Radiculopathy. MEDICAL HISTORY : Renal insufficiency, chronic. SURGICAL HISTORY : Cholecystectomy. Hysterectomy. Tubal ligation. ENCOUNTER: Initial ACUITY: 2 day PAIN SCORE: 0/10 LOCATION: c-spine TECHNIQUE: Multiplanar, multisequence MRI examination of the cervical spine was performed. FINDINGS: Cervical spine alignment is normal. Vertebral bodies have normal height. Visualized portions of the p osterior fossa are grossly unremarkable. There is moderate osteoarthritis anteriorly at C1/C2. C2-C3: Disc is desiccated but otherwise normal. No foraminal or spinal stenosis. C3-C4: The disc is desiccated and has mild loss of height. Small broad but mainly central right paracentral disc osteophyte complex noted and there is mild bilateral uncovertebral and facet osteoarthritis. Mil d spinal stenosis without cord compression or cord signal abnormality. There is mild right foraminal stenosis. C4-C5: The disc is desiccated and has slight loss of height. There is bulging of the disc annulus and modera te to severe right, moderate left uncovertebral and facet osteoarthritis. There is moderate right and mild left foraminal stenosis. C5-C6: The disc is desiccated and has moderate loss of height. Moderate-sized posterior disc osteophyte comp juventino and ossification of the posterior longitudinal ligament noted and there is severe bilateral uncov ertebral and facet osteoarthritis. There is moderate spinal stenosis with short segment cord compress ion. No cord signal abnormality demonstrated. There is moderate to severe right and severe left davin inal stenosis. C6-C7: The disc is desiccated but otherwise within normal limits. Mild to moderate bilateral uncovertebral a nd facet osteoarthritis noted. No significant foraminal or spinal stenosis. C7-T1: The disc is desiccated but otherwise within normal limits. No foraminal or spinal stenosis. CONCLUSION: 1. Multilevel cervical spine degenerative changes as detailed above. 2. Mild spinal stenosis at C3/C4. 3. Moderate spinal stenosis with short segment cord compression at C5/C6. No cord signal abnormality. 4. There is high-grade foraminal stenosis at C5/C6, left worse than right. 5. No fracture or subluxation of the cervical spine. Vasquez Kerns MD on October 28, 2016 at 21:29 Board Certified Radiologist. This report was verified electronically.
--- NOTE | 2016-10-28 21:47 | RADRPT ---
EXAM DATE/TIME: 10/28/2016 19:23 [facility] COMPARISON: No previous studies available for comparison. INDICATIONS : Extremity weakness. MEDICAL HISTORY : Renal insufficiency, chronic. SURGICAL HISTORY : Cholecystectomy. Hysterectomy. Tubal ligation. ENCOUNTER: Initial ACUITY: 3 day PAIN SCORE: 0/10 LOCATION: l-spine TECHNIQUE: Multiplanar multisequence MRI of the lumbar spine was performed without contrast. FINDINGS: Chronic appearing bilateral pars defects are seen at L5. There is about 8 mm of L5/S1 spondylolisthes is. No acute fracture or acute-appearing malalignment seen of the lumbar spine. Vertebral bodies have normal height. Conus terminus is normal, near the level of L1. T12-L1: Normal. L1-L2: The disc is desiccated. Minimal loss of height. There is diffuse bulging of the disc annulus and mild bilateral facet osteoarthritis. No foraminal or spinal stenosis. L2-L3: The disc is slightly desiccated. No significant loss of height. There is bulging of the disc annulus and mild to moderate bilateral facet osteoarthritis. No foraminal or spinal stenosis. L3-L4: The disc is desiccated without significant loss of height. There is diffuse bulging of the disc annul us and mild to moderate bilateral facet osteoarthritis. There is mild foraminal encroachment, mainly on the left. L4-L5: The disc is desiccated and has slight loss of height. There is a small, broad/diffuse disc protrusion and moderate to severe bilateral facet osteoarthritis with thickening of the ligamentum flavum. Ther e is mild narrowing of the left lateral recess but no evidence of transiting nerve root impingement. There is very mild left foraminal encroachment. L5-S1: The disc is desiccated and has moderate to severe loss of height with vacuum phenomena. Grade 1 spond ylolisthesis. There is a small, broad posterior disc protrusion and hypertrophic changes of both face ts. No spinal stenosis. There is moderate right and moderate to severe left foraminal stenosis. Incidentally seen large cyst of the right kidney. CONCLUSION: 1. Multilevel lumbar spine degenerative changes as detailed above. Chronic L5 pars defects with grade one L5/S1 spondylolisthesis. 2. Moderate right and moderate to severe left foraminal stenosis at L5/S1. No significant foraminal s tenosis at other levels. 3. No spinal stenosis of the lumbar spine. Vasquez Kerns MD on October 28, 2016 at 21:40 Board Certified Radiologist. This report was verified electronically.
[2016-10-29] VITALS (8 sets, daily range): BP systolic 116–165; BP diastolic 65–73; PULSE 63–73; RESP 18–22; TEMP 97.2–98.6; O2SAT 94–98
[2016-10-29] MEDS: HEPARIN SODIUM - SQ 10,000 UNITS/ML VIAL SQ SCH ×3 (01:21→16:42)
[2016-10-29] MEDS: LEVOTHYROXINE SODIUM 25 MCG TAB PO SCH (05:12)
[2016-10-29] MEDS: INSULIN ASPART SUPPLEMENTAL SCALE SQ SCH ×4 (06:14→20:28)
[2016-10-29 07:18] LABS: HEMATOCRIT 35.8 % (35.0-46.0); MEAN CELL VOLUME 87.4 FL (80.0-100.0); MEAN CORPUSCULAR HEMOGLOBIN 28.9 PG (27.0-34.0); PLATELET COUNT 250 TH/MM3 (150-450); RED CELL DISTRIBUTION WIDTH 13.2 % (11.6-17.2); REVIEW FLAG FINAL
[2016-10-29 07:38] LABS: BICARBONATE 27.3 MEQ/L (21.0-32.0); MAGNESIUM 1.7 MG/DL (1.5-2.5)
[2016-10-29] MEDS: FLUoxetine HCL 20 MG CAP PO SCH (08:23)
[2016-10-29] MEDS: PRAVASTATIN SOD 10 MG TAB PO SCH (08:23)
[2016-10-29] MEDS: amLODIPine BESYLATE 5 MG TAB PO SCH (08:24)
[2016-10-29] MEDS: SENNOSIDES 8.6 MG TAB PO SCH (08:24)
[2016-10-29] MEDS: PANTOPRAZOLE SOD 40 MG DELAYED RELEASE TAB PO SCH (08:24)
[2016-10-29] MEDS: MEMANTINE HCL 10 MG TAB PO SCH (08:24)
[2016-10-29] MEDS: POLYETHYLENE GLYCOL 17 GM PKG PO SCH (08:25)
[2016-10-29] MEDS: CYANOCOBALAMIN 1000 MCG/ML VIAL IM SCH (08:25)
[2016-10-29] MEDS: SODIUM CHLORIDE 0.9% FLUSH 10 ML FLUSH IV FLUSH SCH ×2 (08:35→20:29)
--- NOTE | 2016-10-29 08:54 | HHI.PR ---
Review/Management Diagnosis/Plan: (1) Generalized weakness Plan: multifactorial: pneumonia/lumbar/cervical spondylosis/kinetic tremor also with b12 deficiency recs stronger today will check mri c/lspine- reviewed with pt; images reviewed mild cord compression , no significant myelopathic signs. she is getting stronger. offered nsx eval; declines and wants to be seen back at her home avoid excessive neck flexion/extension or heavy lifting above shoulders. reviewed myelopathic signs to watch for d/c planning from neuro (2) Essential tremor Plan: she can try primidone when she gets back home and can be followed (3) Depression (4) Cervical spondylosis (5) Lumbar spondylosis Subjective Subjective Comments No acute events reported; feels stronger No headache No chest pain No dyspnea Active Medications Current Medications Medications (Trade) Dose Ordered Sig/Franc Route Start Time Stop Time Status Last Admin (NS Flush) 2 ml UNSCH PRN IV FLUSH 10/27/16 17:15 (NS Flush) 2 ml BID IV FLUSH 10/27/16 21:00 10/29/16 08:35 (Zofran Inj) 4 mg Q6H PRN IVP 10/27/16 17:15 (Heparin Inj) 5,000 units Q8H SQ 10/27/16 17:15 10/29/16 08:24 (Narcan Inj) 0.4 mg UNSCH PRN IV 10/27/16 17:15 Magnesium Hydroxide 30 ml 30 ml Q12H PRN PO 10/27/16 17:15 Azithromycin 500 mg/Sodium Chloride 250 ml @ 250 mls/hr Q24H IV 10/28/16 15:00 10/28/16 15:09 (Rocephin Inj/NS Inj) 100 ml @ 200 mls/hr Q24H IV 10/28/16 15:00 10/28/16 15:01 (Xanax) 0.5 mg BID PRN PO 10/28/16 10:30 (Synthroid) 25 mcg DAILY@0600 PO 10/28/16 10:30 10/29/16 05:12 (Namenda) 10 mg DAILY PO 10/28/16 10:30 10/29/16 08:24 (Pravachol) 10 mg DAILY PO 10/28/16 11:00 10/29/16 08:23 (Protonix) 40 mg DAILY PO 10/28/16 11:15 10/29/16 08:24 (PROzac) 40 mg DAILY PO 10/28/16 11:15 10/29/16 08:23 (Restoril) 30 mg HS PRN PO 10/28/16 11:15 (Norvasc) 5 mg DAILY PO 10/28/16 10:45 10/29/16 08:24 (Vasotec Inj) 1.25 mg Q6H PRN IV PUSH 10/28/16 10:45 (Colace) 100 mg BID PO 10/28/16 12:00 10/28/16 13:02 (Senokot) 17.2 mg DAILY PO 10/28/16 12:00 10/28/16 13:09 (Miralax) 17 gm DAILY PO 10/28/16 12:00 10/29/16 08:25 (Vitamin B12 Inj) 1,000 mcg DAILY IM 10/28/16 17:00 11/03/16 09:01 10/29/16 08:25 (Vitamin B12 Inj) 1,000 mcg Q7D IM 11/10/16 09:00 12/01/16 09:01 (Vitamin B12 Inj) 1,000 mcg Q30D IM 12/31/16 09:00 (Tylenol) 650 mg Q6H PRN PO 10/28/16 18:30 10/28/16 18:24 Allergies Allergies Coded Allergies Bactrim (Verified Allergy, Unknown, 10/27/16) Cipro (Verified Allergy, Unknown, 10/27/16) Codeine (Verified Allergy, Unknown, 10/27/16) Phenobarbital (Verified Allergy, Unknown, 10/27/16) Review of Systems All other ROS: ROS reviewed as documented in chart Exam I&O / VS 10/28/16 10/28/16 10/29/16 15:00 23:00 07:00 Intake Total 1167 ml 480 ml 704 ml Output Total 900 ml 700 ml Balance 267 ml 480 ml 4 ml Intake Oral 720 ml 480 ml 200 ml IV Total 447 ml 504 ml Output Urine Total 900 ml 700 ml # Voids 1 # Bowel Movements 0 1 0 Vital Signs Date Time Temp Pulse Resp B/P Pulse Ox O2 Delivery O2 Flow Rate FiO2 10/29/16 08:27 94 Nasal Cannula 2.00 10/29/16 04:52 97.7 63 18 116/69 98 10/29/16 01:10 97.5 63 18 165/73 98 10/28/16 22:40 Nasal Cannula 2.00 10/28/16 20:50 95 Nasal Cannula 2.00 10/28/16 20:24 97.9 73 18 165/56 93 10/28/16 16:08 97.9 73 18 175/74 97 10/28/16 16:00 Nasal Cannula 2.00 10/28/16 12:01 97.7 73 18 147/66 97 10/28/16 12:00 Nasal Cannula 2.00 10/28/16 10:00 98 Nasal Cannula 2.00 General: Alert and Oriented, No acute distress Eye: EOMI Neurologic: Alert, Oriented, CN II-XII intact Psychiatric: Cooperative, Appropriate mood & affect Exam Comments ox 3, follows, eomi, vff, face sym, able to raise all 4 ext to gravity easily > 10 secs, no clonus, planter flexor, mild distal foot reduced pin; minimal tremor this am Objective Micro and Labs Laboratory Tests Test 10/28/16 10/29/16 12:35 06:50 Vitamin B12 Level 153 Folate 8.4 Thyroid Stimulating Hormone 0.805 3rd Gen White Blood Count 15.0 Red Blood Count 4.10 Hemoglobin 11.8 Hematocrit 35.8 Mean Corpuscular Volume 87.4 Mean Corpuscular Hemoglobin 28.9 Mean Corpuscular Hemoglobin 33.0 Concent Red Cell Distribution Width 13.2 Platelet Count 250 Mean Platelet Volume 9.1 Sodium Level 143 Potassium Level 4.0 Chloride Level 109 Carbon Dioxide Level 27.3 Anion Gap 7 Blood Urea Nitrogen 19 Creatinine 1.00 Estimat Glomerular Filtration 53 Rate Random Glucose 128 Calcium Level 8.7 Magnesium Level 1.7 Date/Time Procedure Status Source Growth 10/27/16 15:30 Aerobic Blood Culture - Preliminary Resulted Blood Peripheral NO GROWTH IN 1 DAY 10/27/16 15:30 Anaerobic Blood Culture - Preliminary Resulted Blood Peripheral NO GROWTH IN 1 DAY Problem Qualifiers (1) Depression: (2) Cervical spondylosis: Qualified Code: M47.812 - Spondylosis of cervical region without myelopathy or radiculopathy Jimbo Mcdaniels MD Oct 29, 2016 08:54
[2016-10-29] MEDS: DOCUSATE SODIUM 100 MG CAP PO SCH ×2 (09:00→20:25)
[2016-10-29] MEDS ORDERED: amLODIPine BESYLATE 5 MG TAB PO ONE (10:45)
--- NOTE | 2016-10-29 10:48 | HHI.PR ---
Subjective Remarks The patient was feeling well and is looking forward to going home tomorrow. She says her breathing is good. She has been working with physical therapy well. She says she tends to eat sandwiches and microwavable foods and doesn't eat that healthy in general. Objective Vitals Vital Signs Date Time Temp Pulse Resp B/P Pulse Ox O2 Delivery O2 Flow Rate FiO2 10/29/16 08:27 94 Nasal Cannula 2.00 10/29/16 08:00 97.2 67 20 164/69 97 10/29/16 04:52 97.7 63 18 116/69 98 10/29/16 01:10 97.5 63 18 165/73 98 10/28/16 22:40 Nasal Cannula 2.00 10/28/16 20:50 95 Nasal Cannula 2.00 10/28/16 20:24 97.9 73 18 165/56 93 10/28/16 16:08 97.9 73 18 175/74 97 10/28/16 16:00 Nasal Cannula 2.00 10/28/16 12:01 97.7 73 18 147/66 97 10/28/16 12:00 Nasal Cannula 2.00 I/O 10/28/16 10/28/16 10/28/16 10/29/16 10/29/16 10/29/16 07:00 15:00 23:00 07:00 15:00 23:00 Intake Total 948 ml 1167 ml 480 ml 704 ml Output Total 250 ml 900 ml 700 ml Balance 698 ml 267 ml 480 ml 4 ml Intake Oral 240 ml 720 ml 480 ml 200 ml IV Total 708 ml 447 ml 504 ml Output Urine Total 250 ml 900 ml 700 ml Stool Total 0 ml # Voids 1 # Bowel Movements 0 1 0 Result Diagram: 10/29/16 0650 10/29/16 0650 Imaging Last Impressions Chest X-Ray 10/28/16 0600 Signed Impressions: Service Date/Time: Friday, October 28, 2016 08:44 - CONCLUSION: Mild interstitial edema. Minimal consolidative changes left base. Prabhakar Burns MD FACR Lumbar Spine MRI 10/28/16 0000 Signed Impressions: Service Date/Time: Friday, October 28, 2016 19:23 - CONCLUSION: 1. Multilevel lumbar spine degenerative changes as detailed above. Chronic L5 pars defects with grade one L5/S1 spondylolisthesis. 2. Moderate right and moderate to severe left foraminal stenosis at L5/S1. No significant foraminal stenosis at other levels. 3. No spinal stenosis of the lumbar spine. Vasquez Kerns MD Cervical Spine MRI 10/28/16 0000 Signed Impressions: Service Date/Time: Friday, October 28, 2016 19:23 - CONCLUSION: 1. Multilevel cervical spine degenerative changes as detailed above. 2. Mild spinal stenosis at C3/C4. 3. Moderate spinal stenosis with short segment cord compression at C5/C6. No cord signal abnormality. 4. There is high-grade foraminal stenosis at C5/C6, left worse than right. 5. No fracture or subluxation of the cervical spine. Vasquez Kerns MD Head CT 10/27/16 1409 Signed Impressions: Service Date/Time: Thursday, October 27, 2016 16:02 - CONCLUSION: Aging brain with mild volume loss. No evidence of acute infarct, hemorrhage, mass or edema. Amaury Carrion MD Hip and Pelvis X-Ray 10/27/16 0000 Signed Impressions: Service Date/Time: Thursday, October 27, 2016 20:08 - CONCLUSION: Intact pelvis and left hip. Vasquez Kerns MD Hip X-Ray 10/27/16 0000 Signed Impressions: Service Date/Time: Thursday, October 27, 2016 20:09 - CONCLUSION: Intact right hip. Mild osteoarthritis. Vasquez Kerns MD Objective Remarks GENERAL: This is a well-nourished, well-developed patient, in no apparent distress. SKIN: No rashes, ecchymoses or lesions. Cool and dry. HEAD: Atraumatic. Normocephalic. EYES: Pupils equal round and reactive. Extraocular motions intact. ENT: Nose without bleeding, purulent drainage or septal hematoma. Airway patent. NECK: Trachea midline. No JVD or lymphadenopathy. Supple, nontender, no meningeal signs. CARDIOVASCULAR: Regular rate and rhythm without murmurs, gallops, or rubs. RESPIRATORY: Diminished breath sounds bilaterally. No wheezes, rales, or rhonchi. GASTROINTESTINAL: Abdomen soft, non-tender, nondistended. No hepato-splenomegaly , or palpable masses. No guarding. MUSCULOSKELETAL: Extremities without clubbing, cyanosis, or edema. No joint tenderness, effusion, or edema noted. No calf tenderness. NEUROLOGICAL: Awake and alert. Baseline tremor. Cranial nerves II through XII intact. Motor 4 out of 5 muscle strength in upper extremities, 3/5 in lower extremities. Normal speech. PSYCH: Mood and affect appropriate. Procedures None Medications and IVs Current Medications Medications (Trade) Dose Ordered Sig/Franc Route Start Time Stop Time Status Last Admin (NS Flush) 2 ml UNSCH PRN IV FLUSH 10/27/16 17:15 (NS Flush) 2 ml BID IV FLUSH 10/27/16 21:00 10/29/16 08:35 (Zofran Inj) 4 mg Q6H PRN IVP 10/27/16 17:15 (Heparin Inj) 5,000 units Q8H SQ 10/27/16 17:15 10/29/16 08:24 (Narcan Inj) 0.4 mg UNSCH PRN IV 10/27/16 17:15 Magnesium Hydroxide 30 ml 30 ml Q12H PRN PO 10/27/16 17:15 Azithromycin 500 mg/Sodium Chloride 250 ml @ 250 mls/hr Q24H IV 10/28/16 15:00 10/28/16 15:09 (Rocephin Inj/NS Inj) 100 ml @ 200 mls/hr Q24H IV 10/28/16 15:00 10/28/16 15:01 (Xanax) 0.5 mg BID PRN PO 10/28/16 10:30 (Synthroid) 25 mcg DAILY@0600 PO 10/28/16 10:30 10/29/16 05:12 (Namenda) 10 mg DAILY PO 10/28/16 10:30 10/29/16 08:24 (Pravachol) 10 mg DAILY PO 10/28/16 11:00 10/29/16 08:23 (Protonix) 40 mg DAILY PO 10/28/16 11:15 10/29/16 08:24 (PROzac) 40 mg DAILY PO 10/28/16 11:15 10/29/16 08:23 (Restoril) 30 mg HS PRN PO 10/28/16 11:15 (Norvasc) 5 mg DAILY PO 10/28/16 10:45 10/29/16 08:24 (Vasotec Inj) 1.25 mg Q6H PRN IV PUSH 10/28/16 10:45 (Colace) 100 mg BID PO 10/28/16 12:00 10/28/16 13:02 (Senokot) 17.2 mg DAILY PO 10/28/16 12:00 10/28/16 13:09 (Miralax) 17 gm DAILY PO 10/28/16 12:00 10/29/16 08:25 (Vitamin B12 Inj) 1,000 mcg DAILY IM 10/28/16 17:00 11/03/16 09:01 10/29/16 08:25 (Vitamin B12 Inj) 1,000 mcg Q7D IM 11/10/16 09:00 12/01/16 09:01 (Vitamin B12 Inj) 1,000 mcg Q30D IM 12/31/16 09:00 (Tylenol) 650 mg Q6H PRN PO 10/28/16 18:30 10/28/16 18:24 A/P Problem List: (1) Pneumonia ICD Code: J18.9 Status: Acute (2) Generalized weakness ICD Code: R53.1 Status: Acute (3) Leukocytosis ICD Code: D72.829 Status: Acute (4) Acute on chronic renal insufficiency ICD Code: N28.9 Status: Acute Assessment and Plan Pneumonia (community acquired) Chest xray shows air space disease in the right upper lobe and left base; Right basilar calcified granuloma. Repeat CXR with minimal consolidative changes in the left base. She has leukocytosis. - Continue IV ceftriaxone and azithromycin. She will complete a course of Ceftin and azithromycin upon discharge. - Incentive spirometer while awake. - Oxygen and Duonebs as needed. - Follow blood cultures. No growth to date. - Mechanical soft diet per speech therapy. Generalized weakness/ cobalamin deficiency Chronic for the last several months. She uses a walker at home and has been falling s/t her knees buckling. She reportedly had an EMG as an outpt which was abnormal. Vitamin B12 level was low. Started on IM B12 replacement per neurology. Neurology consultation appreciated. MRIs reviewed. - Outpatient follow-up with neurology. - PT/ OT consults to eval and treat. - Continue with IM cobalamin replacement. Renal insufficiency Creatine 1.3 on admission. Improved with fluids. - Avoid nephrotoxins. - Status post gentle IVF hydration. Diabetes The patient says she has been taken off of her medications. Hemoglobin A1c level was 6.6%. - Insulin sliding scales and monitor glucose. - Lifestyle modifications recommended. Hypertension Blood pressure has been elevated. - start amlodipine, increase to 10 mg daily. - Vasotec as needed. DVT prophylaxis: Heparin Discharge Planning Anticipate discharge home in the morning with home healthcare Problem Qualifiers (1) Pneumonia: Qualified Code: J18.9 - Pneumonia of both lungs due to infectious organism, unspecified part of lung Murray Nguyen DO Oct 29, 2016 10:48
[2016-10-29] MEDS: AZITHROMYCIN INJ 500 MG in SODIUM CHLOR 0.9% 250 ML INJ 250 ML IV SCH (14:08)
[2016-10-29] MEDS: cefTRIAXone INJ 1,000 MG in SODIUM CHLORIDE 0.9% INJ 100 ML IV SCH (15:12)
[2016-10-30] MEDS: HEPARIN SODIUM - SQ 10,000 UNITS/ML VIAL SQ SCH ×2 (00:27→08:33)
[2016-10-30 05:00] VITALS: BP 164/75; PULSE 70; RESP 20; TEMP 97.4; O2SAT 92
[2016-10-30] MEDS: INSULIN ASPART SUPPLEMENTAL SCALE SQ SCH ×2 (05:40→11:00)
[2016-10-30] MEDS: LEVOTHYROXINE SODIUM 25 MCG TAB PO SCH (05:40)
[2016-10-30] MEDS: FLUoxetine HCL 20 MG CAP PO SCH (08:00)
[2016-10-30] MEDS: PRAVASTATIN SOD 10 MG TAB PO SCH (08:00)
[2016-10-30] MEDS: PANTOPRAZOLE SOD 40 MG DELAYED RELEASE TAB PO SCH (08:00)
[2016-10-30] MEDS: SENNOSIDES 8.6 MG TAB PO SCH (08:00)
[2016-10-30] MEDS: DOCUSATE SODIUM 100 MG CAP PO SCH (08:00)
[2016-10-30] MEDS: POLYETHYLENE GLYCOL 17 GM PKG PO SCH (08:01)
[2016-10-30] MEDS: MEMANTINE HCL 10 MG TAB PO SCH (08:01)
[2016-10-30] MEDS: SODIUM CHLORIDE 0.9% FLUSH 10 ML FLUSH IV FLUSH SCH (08:01)
[2016-10-30] MEDS: CYANOCOBALAMIN 1000 MCG/ML VIAL IM SCH (08:01)
[2016-10-30 08:11] VITALS: BP 154/64; PULSE 67; RESP 20; TEMP 98; O2SAT 92
--- NOTE | 2016-10-30 08:55 | HHI.PR ---
Review/Management Diagnosis/Plan: (1) Generalized weakness Plan: multifactorial: pneumonia/lumbar/cervical spondylosis/kinetic tremor also with b12 deficiency will check mri c/lspine- reviewed with pt; images reviewed mild cord compression , no significant myelopathic signs. she is getting stronger. offered nsx eval; declines and wants to be seen back at her home avoid excessive neck flexion/extension or heavy lifting above shoulders. reviewed myelopathic signs to watch for recs neuro stable b12 supplementation f/u with her neurologist back home d/c planning from neuro (2) Essential tremor Plan: she can try primidone when she gets back home and can be followed (3) Depression (4) Cervical spondylosis (5) Lumbar spondylosis Subjective Subjective Comments No acute events reported No headache No chest pain No dyspnea Active Medications Current Medications Medications (Trade) Dose Ordered Sig/Franc Route Start Time Stop Time Status Last Admin (NS Flush) 2 ml UNSCH PRN IV FLUSH 10/27/16 17:15 (NS Flush) 2 ml BID IV FLUSH 10/27/16 21:00 10/30/16 08:01 (Zofran Inj) 4 mg Q6H PRN IVP 10/27/16 17:15 (Heparin Inj) 5,000 units Q8H SQ 10/27/16 17:15 10/30/16 08:33 (Narcan Inj) 0.4 mg UNSCH PRN IV 10/27/16 17:15 Magnesium Hydroxide 30 ml 30 ml Q12H PRN PO 10/27/16 17:15 Azithromycin 500 mg/Sodium Chloride 250 ml @ 250 mls/hr Q24H IV 10/28/16 15:00 10/29/16 14:08 (Rocephin Inj/NS Inj) 100 ml @ 200 mls/hr Q24H IV 10/28/16 15:00 10/29/16 15:12 (Xanax) 0.5 mg BID PRN PO 10/28/16 10:30 (Synthroid) 25 mcg DAILY@0600 PO 10/28/16 10:30 10/30/16 05:40 (Namenda) 10 mg DAILY PO 10/28/16 10:30 10/30/16 08:01 (Pravachol) 10 mg DAILY PO 10/28/16 11:00 10/30/16 08:00 (Protonix) 40 mg DAILY PO 10/28/16 11:15 10/30/16 08:00 (PROzac) 40 mg DAILY PO 10/28/16 11:15 10/30/16 08:00 (Restoril) 30 mg HS PRN PO 10/28/16 11:15 (Vasotec Inj) 1.25 mg Q6H PRN IV PUSH 10/28/16 10:45 (Colace) 100 mg BID PO 10/28/16 12:00 10/30/16 08:00 (Senokot) 17.2 mg DAILY PO 10/28/16 12:00 10/30/16 08:00 (Miralax) 17 gm DAILY PO 10/28/16 12:00 10/30/16 08:01 (Vitamin B12 Inj) 1,000 mcg DAILY IM 10/28/16 17:00 11/03/16 09:01 10/30/16 08:01 (Vitamin B12 Inj) 1,000 mcg Q7D IM 11/10/16 09:00 12/01/16 09:01 (Vitamin B12 Inj) 1,000 mcg Q30D IM 12/31/16 09:00 (Tylenol) 650 mg Q6H PRN PO 10/28/16 18:30 10/28/16 18:24 (Norvasc) 10 mg DAILY PO 10/30/16 09:00 10/30/16 08:00 Allergies Allergies Coded Allergies Bactrim (Verified Allergy, Unknown, 10/27/16) Cipro (Verified Allergy, Unknown, 10/27/16) Codeine (Verified Allergy, Unknown, 10/27/16) Phenobarbital (Verified Allergy, Unknown, 10/27/16) Review of Systems All other ROS: ROS reviewed as documented in chart Exam I&O / VS 10/29/16 10/29/16 10/30/16 15:00 23:00 07:00 Intake Total 384 ml 360 ml 2 ml Output Total 900 ml 300 ml Balance -516 ml 60 ml 2 ml Intake Oral 384 ml 360 ml IV Total 2 ml Output Urine Total 900 ml 300 ml # Voids 2 2 # Bowel Movements 0 0 Vital Signs Date Time Temp Pulse Resp B/P Pulse Ox O2 Delivery O2 Flow Rate FiO2 10/30/16 08:11 98.0 67 20 154/64 92 10/30/16 05:00 97.4 70 20 164/75 92 10/30/16 04:00 Room Air 10/30/16 00:00 Room Air 10/29/16 21:00 97 Nasal Cannula 2.00 10/29/16 20:30 Nasal Cannula 2.00 10/29/16 20:00 98.6 73 20 155/65 94 10/29/16 16:00 Nasal Cannula 2.00 10/29/16 16:00 97.9 72 20 155/65 98 10/29/16 12:00 97.7 69 22 152/67 97 10/29/16 12:00 Nasal Cannula 2.00 General: Alert and Oriented, No acute distress Eye: EOMI Neurologic: Alert, Oriented, CN II-XII intact Psychiatric: Cooperative, Appropriate mood & affect Exam Comments ox 3, follows, sitting up eating breakfast, eomi, vff, face sym, able to raise all 4 ext to gravity, mild proximal hip flexor weakness, no clonus, planter flexor, mild distal foot reduced pin; minimal tremor this am Objective Micro and Labs Date/Time Procedure Status Source Growth 10/27/16 15:30 Aerobic Blood Culture - Preliminary Resulted Blood Peripheral NO GROWTH IN 2 DAYS 10/27/16 15:30 Anaerobic Blood Culture - Preliminary Resulted Blood Peripheral NO GROWTH IN 2 DAYS Problem Qualifiers (1) Depression: (2) Cervical spondylosis: Qualified Code: M47.812 - Spondylosis of cervical region without myelopathy or radiculopathy Jimbo Mcdaniels MD Oct 30, 2016 08:55
[2016-10-30 09:23] VITALS: O2SAT 94
--- NOTE | 2016-10-30 11:37 | HHI.DCPOC ---
Discharge Care Plan Diagnosis: (1) Essential tremor (2) Acute on chronic renal insufficiency (3) Pneumonia (4) Generalized weakness (5) Leukocytosis (6) Cobalamin deficiency Goals to Promote Your Health * To prevent worsening of your condition and complications * To maintain your health at the optimal level Directions to Meet Your Goals Take your medications as prescribed Follow your dietary instruction Follow activity as directed Keep your appointments as scheduled Take your immunizations and boosters as scheduled If your symptoms worsen call your PCP, if no PCP go to Urgent Care Center or Emergency Room Smoking is Dangerous to Your Health. Avoid second hand smoke Call the 24-hour hour crisis hotline for domestic abuse at Murray Nguyen DO Oct 30, 2016 11:37
--- NOTE | 2016-10-30 11:38 | HHI.FF ---
Face to Face Verification Diagnosis: (1) Cobalamin deficiency (2) Essential tremor (3) Acute on chronic renal insufficiency (4) Pneumonia (5) Generalized weakness Physical Therapy Order: Evaluate and Treat, Improve ambulation, Strength and gait training Occupational Therapy Order: Evaluate and Treat, Improve ADL, Gross motor coordination, Fine motor coordination Home Health Nursing Order: Medical education Signs/symptoms of disease process Medication education-adverse effect Nursing assessment with vital signs I have seen patient Caitlin Giudo on 10/30/16. My clinical findings support the need for the requested home health care services because: Deconditioned w/ increased weakness Limited ability to care for self High risk of falls Infection w/ risk of complications I certify that my clinical findings support that this patient is homebound because: Unsteady gait/balance Unsafe to leave home unassisted Murray Nguyen DO Oct 30, 2016 11:38
[2016-10-30] MEDS ORDERED: CYAN1000P IM ×2 (11:42)
[2016-10-30] MEDS ORDERED: AMLO10 PO (11:42)
--- NOTE | 2016-10-30 11:47 | HHI.DS ---
Discharge Summary Admission Date Oct 27, 2016 at 16:36 Discharge Date: Oct 30, 2016 Admitting Diagnosis Pneumonia, CONSTANZA, Weakness (1) Pneumonia ICD Code: J18.9 Diagnosis: Principal (2) Generalized weakness ICD Code: R53.1 Diagnosis: Principal (3) Leukocytosis ICD Code: D72.829 Diagnosis: Principal (4) Acute on chronic renal insufficiency ICD Code: N28.9 (5) Cobalamin deficiency ICD Code: E53.8 Diagnosis: Principal Procedures None Brief History - From Admission 81 year old female with history of HLD, hypothyroidism, anxiety, depression, CKD stage 3, and DM (Diet controlled) was brought in by [facility] for generalized weakness. Patient is from [place] and she will be here til Wednesday. She complains of generalized weakness to bilateral lower extremities, and fine tremors in bilateral hands, and it has caused her to have multiple falls in the past several months. She does use a walker with a seat at home. Her most recent fall was on Wednesday, she denies any prior dizziness or loc prior to fall. After the fall she was complaining of bilateral rib pain, that caused pain when she took deep breaths. She denies any cough or shortness of breath associated. In [place] she was in the process of going to see a neurologist for her weakness, but has not made it yet. Her PCP did Electromyography (EMG testing) and was referring her to a neurologist. She denies any chest pain, fever, chills, nausea , or dysuria. The patient says that she has been falling down quite a bit recently. She has been to the ED for numerous injuries. She most recently is complaining of bilateral hip pain from falls. She denies any cough. She says she has been weak and has been worked up at her primary care doctor's office and had an EMG which did show abnormalities. She was waiting to see a neurologist about that. She says she has been ambulating with a walker but sometimes her legs will start becoming tremulous and she will just fall even with the walker. CBC/BMP: 10/29/16 0650 10/29/16 0650 Significant Findings Laboratory Tests Test 10/27/16 10/28/16 10/28/16 10/29/16 14:20 08:08 12:35 06:50 White Blood Count 22.1 TH/MM3 17.1 TH/MM3 15.0 TH/MM3 (4.0-11.0) (4.0-11.0) (4.0-11.0) Mean Corpuscular Hemoglobin 31.6 % Concent (32.0-36.0) Neutrophils (%) (Auto) 75.1 % (16.0-70.0) Monocytes (%) (Auto) 10.2 % 10.8 % (0.0-8.0) (0.0-8.0) Neutrophils # (Auto) 16.6 TH/MM3 10.9 TH/MM3 (1.8-7.7) (1.8-7.7) Monocytes # (Auto) 2.3 TH/MM3 1.8 TH/MM3 (0-0.9) (0-0.9) Neutrophils % (Manual) 76 % (16-70) Neutrophils # (Manual) 17.9 TH/MM3 (1.8-7.7) Chloride Level 108 MEQ/L 109 MEQ/L (98-107) (98-107) Blood Urea Nitrogen 26 MG/DL (7-18) 24 MG/DL (7-18) 19 MG/DL (7-18) Creatinine 1.30 MG/DL 1.11 MG/DL (0.50-1.00) (0.50-1.00) Estimat Glomerular Filtration 39 ML/MIN (>89) 47 ML/MIN (>89) 53 ML/MIN (>89) Rate Random Glucose 142 MG/DL 111 MG/DL 128 MG/DL (74-106) (74-106) (74-106) Troponin I LESS THAN 0.02 NG/ML (0.02-0.05) Albumin 2.7 GM/DL 2.2 GM/DL (3.4-5.0) (3.4-5.0) Eosinophils # (Auto) 0.5 TH/MM3 (0-0.4) Hemoglobin A1c 6.6 % (4.3-6.0) Calcium Level 8.3 MG/DL (8.5-10.1) Aspartate Amino Transf 14 U/L (15-37) (AST/SGOT) Total Protein 5.8 GM/DL (6.4-8.2) Vitamin B12 Level 153 PG/ML (193-986) Imaging Last Impressions Chest X-Ray 10/28/16 0600 Signed Impressions: Service Date/Time: Friday, October 28, 2016 08:44 - CONCLUSION: Mild interstitial edema. Minimal consolidative changes left base. Prabhakar Burns MD FACR Lumbar Spine MRI 10/28/16 0000 Signed Impressions: Service Date/Time: Friday, October 28, 2016 19:23 - CONCLUSION: 1. Multilevel lumbar spine degenerative changes as detailed above. Chronic L5 pars defects with grade one L5/S1 spondylolisthesis. 2. Moderate right and moderate to severe left foraminal stenosis at L5/S1. No significant foraminal stenosis at other levels. 3. No spinal stenosis of the lumbar spine. Vasquez Kerns MD Cervical Spine MRI 10/28/16 0000 Signed Impressions: Service Date/Time: Friday, October 28, 2016 19:23 - CONCLUSION: 1. Multilevel cervical spine degenerative changes as detailed above. 2. Mild spinal stenosis at C3/C4. 3. Moderate spinal stenosis with short segment cord compression at C5/C6. No cord signal abnormality. 4. There is high-grade foraminal stenosis at C5/C6, left worse than right. 5. No fracture or subluxation of the cervical spine. Vasquez Kerns MD Head CT 10/27/16 1409 Signed Impressions: Service Date/Time: Thursday, October 27, 2016 16:02 - CONCLUSION: Aging brain with mild volume loss. No evidence of acute infarct, hemorrhage, mass or edema. Amaury Carrion MD Hip and Pelvis X-Ray 10/27/16 0000 Signed Impressions: Service Date/Time: Thursday, October 27, 2016 20:08 - CONCLUSION: Intact pelvis and left hip. Vasquez Kerns MD Hip X-Ray 10/27/16 0000 Signed Impressions: Service Date/Time: Thursday, October 27, 2016 20:09 - CONCLUSION: Intact right hip. Mild osteoarthritis. Vasquez Kerns MD PE at Discharge GENERAL: This is a well-nourished, well-developed patient, in no apparent distress. SKIN: No rashes, ecchymoses or lesions. Cool and dry. HEAD: Atraumatic. Normocephalic. EYES: Pupils equal round and reactive. Extraocular motions intact. ENT: Nose without bleeding, purulent drainage or septal hematoma. Airway patent. NECK: Trachea midline. No JVD or lymphadenopathy. Supple, nontender, no meningeal signs. CARDIOVASCULAR: Regular rate and rhythm without murmurs, gallops, or rubs. RESPIRATORY: Diminished breath sounds bilaterally. No wheezes, rales, or rhonchi. GASTROINTESTINAL: Abdomen soft, non-tender, nondistended. No hepato-splenomegaly , or palpable masses. No guarding. MUSCULOSKELETAL: Extremities without clubbing, cyanosis, or edema. No joint tenderness, effusion, or edema noted. No calf tenderness. NEUROLOGICAL: Awake and alert. Baseline tremor. Cranial nerves II through XII intact. Motor 4 out of 5 muscle strength in upper extremities, 3/5 in lower extremities. Normal speech. PSYCH: Mood and affect appropriate. Pt update on day of discharge The patient was resting comfortably in bed. Family at the bedside. The patient wanted to go home. She said she felt stronger. No acute complaints at this time. Hospital Course Pneumonia (community acquired) Chest xray shows air space disease in the right upper lobe and left base; Right basilar calcified granuloma. Repeat CXR with minimal consolidative changes in the left base. She had leukocytosis. She was continued on IV ceftriaxone and azithromycin. She will complete a course of Ceftin and azithromycin upon discharge. She received incentive spirometery. She received oxygen and Duonebs as needed. Blood cultures were negative. She had an oxygen walk test prior to discharge. She will not need home oxygen. Generalized weakness/ cobalamin deficiency Chronic for the last several months. She uses a walker at home and has been falling s/t her knees buckling. She reportedly had an EMG as an outpt which was abnormal. MRI of the lumbar and cervical spine were ordered by neurology. Vitamin B12 level was low. Started on IM B12 replacement per neurology. She worked with PT/ OT/ ST. She will have outpatient follow-up with neurology. She will continue with IM cobalamin replacement and follow up with her PCP. Renal insufficiency Creatine 1.3 on admission. Improved with fluids. Diabetes The patient says she has been taken off of her medications. Hemoglobin A1c level was 6.6%. She was placed on an insulin sliding scale. Hypertension Blood pressure has been elevated. We started amlodipine and increased the dose to 10 mg daily. She received Vasotec as needed. Pt Condition on Discharge: Stable Discharge Disposition: Disch w/ Home Health Serv Discharge Time: > 30 minutes Discharge Instructions DIET: Follow Instructions for: Heart Healthy Diet Activities you can perform: Weight Bearing as Sasha Follow up Referrals: Neurology - 1 Week PCP Follow-up - 1 Week New Medications: Azithromycin (Azithromycin) 500 Mg Tab 500 MG PO DAILY Infection #3 Ref 0 TAB Cefuroxime (Cefuroxime) 500 Mg Tab 500 MG PO BID Infection #10 Ref 0 TAB Amlodipine (Norvasc) 10 Mg Tab 10 MG PO DAILY Blood Pressure Management #30 TAB Cyanocobalamin Inj (Cyanocobalamin Inj) 1,000 Mcg/Ml Inj 1000 MCG IM Q7D vitamin b12 deficiency #4 INJECTION Cyanocobalamin Inj (Cyanocobalamin Inj) 1,000 Mcg/Ml Inj 1000 MCG IM Q30D Take after finished with once weekly dosing vitamin B 12 deficiency #4 INJECTION Continued Medications: Alprazolam (Xanax) 0.5 Mg Tab 0.5 MG PO BID PRN ANXIETY Ref [address] (Nexium) 40 Mg Capdr 40 MG PO DAILY Ref 0 CAP Levothyroxine (Levothyroxine) 25 Mcg Tab 25 MCG PO DAILY Thyroid #30 Ref 0 TAB Memantine (Namenda) 10 Mg Tab 10 MG PO DAILY Alzheimer Disease #30 Ref 0 TAB Olanzapine-Fluoxetine (Symbyax) 6-25 mg Cap 1 CAP PO DAILY Control Depression #30 Ref 0 CAP Pravastatin (Pravastatin) 10 Mg Tab 10 MG PO DAILY Cholesterol Management #30 Ref 0 TAB Temazepam (Restoril) 30 Mg Cap 30 MG PO HS PRN INSOMNIA #30 Ref 0 CAP Tizanidine (Zanaflex) 4 Mg Cap 4 MG PO TID Muscle Spasm Ref 0 CAP Discontinued Medications: Fluoxetine (Prozac) 40 Mg Cap 40 MG PO DAILY #30 Ref 0 CAP Murray Nguyen DO Oct 30, 2016 11:47 Fluoxetine (Prozac) 40 Mg Cap 40 MG PO DAILY #30 Ref 0 CAP Murray Nguyen DO Oct 30, 2016 11:47
[2016-10-30] MEDS ORDERED: AZIT500T2 PO (11:52)
[2016-10-30] MEDS ORDERED: CEFU1TAB20 PO (11:52)
[2016-10-30 12:20] VITALS: BP 144/65; PULSE 71; RESP 20; TEMP 97.8; O2SAT 93
[2016-11-10] MEDS ORDERED: CYANOCOBALAMIN 1000 MCG/ML VIAL IM SCH (09:00)
[2016-12-31] MEDS ORDERED: CYANOCOBALAMIN 1000 MCG/ML VIAL IM SCH (09:00)
== END 2016-10-30 13:48 | disposition home health service (06) | DRG 194 ==
LOC: NEPE 13:38 → NEDA 16:36 → N04B 18:51
PROVIDERS: ADMIT Hospitalist; ATTEND Hospitalist
DX: J18.9 Pneumonia, unspecified organism (principal); N17.9 Acute kidney failure, unspecified; E11.22 Type 2 diabetes mellitus with diabetic chronic kidney disease; E11.65 Type 2 diabetes mellitus with hyperglycemia; F32.9 Major depressive disorder, single episode, unspecified; E03.9 Hypothyroidism, unspecified; E78.5 Hyperlipidemia, unspecified; I12.9 Hypertensive chronic kidney disease with stage 1 through stage 4 chronic kidney disease, or unspecified chronic kidney disease; F41.9 Anxiety disorder, unspecified; Y95 Nosocomial condition; N18.3 Chronic kidney disease, stage 3 (moderate); R53.1 Weakness; G25.0 Essential tremor; M47.812 Spondylosis without myelopathy or radiculopathy, cervical region; E53.8 Deficiency of other specified B group vitamins; M47.816 Spondylosis without myelopathy or radiculopathy, lumbar region; G89.29 Other chronic pain; Z91.81 History of falling; R29.6 Repeated falls; M48.06 Spinal stenosis, lumbar region; M54.2 Cervicalgia; M54.5 Low back pain
CPT/HCPCS: 70450; 71010; 71020; 72141; 72148; 73502; 80048; 80053; 82607; 82746; 82948; 83036; 83605; 83735; 84443; 84484; 85007; 85025; 85027; 87040; 93005; 94150; 96365; J0456; J0692; J0696; J1644; J1815; J3420; J7050